=== PATIENT | female | born 1965 | race Caucasian/White ===

== ENCOUNTER 2024-07-30 23:42 | Emergency (ER) | payer MEDICARE, MEDICAID ==
[2024-07-31] MEDS: Cephalexin 250 MG Cap PO ONE ×2 (00:55→01:15)
[2024-07-31] MEDS: Acetaminophen/oxyCODONE 325-5 MG Tab PO ONE ×2 (01:11→01:26)
[2024-07-31] MEDS: Ibuprofen 600 MG Tab PO ONE (01:12)
[2024-07-31] MEDS: Bacitracin/Neomycin/Polymyxin B Oint 0.9 GM U/D Packet ONE (01:27)
[2024-07-31] MEDS: Bacitracin/Neomycin/Polymyxin B Oint 0.9 GM U/D Packet TOP ONE (01:30)
== END 2024-07-31 01:36 ==
LOC: KA.ED 23:42
DX: T81.40XA Infection following a procedure, unspecified, initial encounter (principal); E11.9 Type 2 diabetes mellitus without complications; Z88.0 Allergy status to penicillin; Z88.7 Allergy status to serum and vaccine; Z88.8 Allergy status to other drugs, medicaments and biological substances; Z79.51 Long term (current) use of inhaled steroids; Z79.82 Long term (current) use of aspirin; Z79.899 Other long term (current) drug therapy
CPT/HCPCS: 87070; 87186; 87205; 99283; 99285; A9270-GY

== ENCOUNTER 2024-08-03 18:50 | Emergency (ER) | payer MEDICARE, MEDICAID ==
[2024-08-03] MEDS ORDERED: Sodium Chloride 0.9% 10 ML Syringe FLUSH PRN (19:04)
[2024-08-03 19:49] LABS: BASOPHILS ABSOLUTE AUTO 0.02 10^3/uL (0.00-0.10); BASOPHILS PERCENT AUTO 0.1 % (0.0-1.0); EOSINOPHILS ABSOLUTE AUTO 0.01 10^3/uL (0.10-0.30); HEMATOCRIT 38.6 % (37.0-47.0); HEMOGLOBIN 12.2 g/dL (12.0-16.0); IMMATURE GRAN ABSOLUTE AUTO 0.12 10^3/uL (0.00-0.04); IMMATURE GRAN PERCENT AUTO 0.5 % (0.0-0.4); LYMPHOCYTES ABSOLUTE AUTO 3.64 10^3/uL (1.00-4.00); LYMPHOCYTES PERCENT AUTO 16.6 % (20.0-40.0); MEAN CORPUSCULAR HEMOGLOBIN 30.7 pg (27.0-31.0); MEAN CORPUSCULAR HGB CONC 31.6 g/dL (32.0-36.0); MEAN CORPUSCULAR VOLUME 97.2 fL (82.0-92.0); MEAN PLATELET VOLUME 10.5 fL (7.4-10.4); MONOCYTES ABSOLUTE AUTO 1.57 10^3/uL (0.10-0.80); MONOCYTES PERCENT AUTO 7.2 % (2.0-8.0); NEUTROPHILS ABSOLUTE AUTO 16.53 10^3/uL (2.50-7.00); NEUTROPHILS PERCENT AUTO 75.6 % (50.0-70.0); PLATELET COUNT,PLT 522 10^3/uL (150-400); RED BLOOD CELL COUNT 3.97 10^6/uL (3.80-5.50); RED CELL DISTRIBUTION WIDTH 16.2 % (11.5-14.5); WHITE BLOOD CELL COUNT,WBC 21.89 10^3/uL (5.00-10.00)
[2024-08-03 20:11] LABS: ALBUMIN 2.36 g/dL (3.40-5.00); ANION GAP 13.6 mmol/L (5-15); BILIRUBIN TOTAL 0.2 mg/dL (0.2-1.0); CALCIUM 9.9 mg/dL (8.7-10.3); CARBON DIOXIDE,CO2 28.5 mmol/L (21.0-32.0); CREATININE 0.46 mg/dL (0.51-1.17); EST CRCL DRUG DOSING (CG) 121.75 mL/min; POTASSIUM,K 4.1 mmol/L (3.5-5.1); PROTEIN TOTAL,TP 6.7 g/dL (6.4-8.2)
[2024-08-03 20:33] LABS: LACTIC ACID 1.3 mmol/L (0.4-2.0)
[2024-08-03] MEDS: VANCOmycin 1.25 GM/250 ML 1.25 GM in Premix Bag 1 BAG IV ONE (20:47)
[2024-08-03] MEDS ORDERED: Naloxone 0.4 MG/ML SDV IVPUSH PRN (22:01)
[2024-08-03] MEDS: Ondansetron 4 MG/2 ML SDV IVPUSH ONE (22:10)
[2024-08-03] MEDS: HYDROmorphone 1 MG/ML Syringe IVPUSH ONE (22:20)
== END 2024-08-03 22:37 ==
LOC: KA.ED 18:50
DX: T81.49XA Infection following a procedure, other surgical site, initial encounter (principal); M25.531 Pain in right wrist; B95.62 Methicillin resistant Staphylococcus aureus infection as the cause of diseases classified elsewhere; D72.825 Bandemia; R74.01 Elevation of levels of liver transaminase levels; E11.9 Type 2 diabetes mellitus without complications; Z79.899 Other long term (current) drug therapy; Z79.82 Long term (current) use of aspirin; Z79.4 Long term (current) use of insulin; Z88.0 Allergy status to penicillin; Z88.8 Allergy status to other drugs, medicaments and biological substances; Z88.7 Allergy status to serum and vaccine
CPT/HCPCS: 80053; 83605; 85025; 87040; 96365; 96366; 96375; 99284; 99285-25; J1171; J2405; J3372